=== PATIENT | female | born 1970 | race Caucasian/White ===

== ENCOUNTER 2017-01-27 17:44 | Emergency (ER) | payer BC, OTHER ==
[~2017-01-27] VITALS: Ht 152.4 cm; Wt 65.8 kg
[2017-01-27 20:40] LABS: PLATELET COUNT 293 x10^3mcL (130-400)
[2017-01-27 20:47] LABS: RED CELL DISTRIBUTION WIDTH 19.7 % (11.5-14.5)
[2017-01-27 20:54] LABS: BAND NEUTROPHIL 1 % (0-10); MONOCYTE 5 % (0-7); SEGMENTED NEUTROPHILS 55 % (37-75)
[2017-01-27 20:58] LABS: ovalocyte/elliptocyte 1+; rbc morphology (normal/abnorm) ABNORMAL (NORMAL)
[2017-01-27 21:45] VITALS: BP 122/76
== END 2017-01-27 21:30 | disposition home or self-care (01) ==
LOC: ED 17:44
PROVIDERS: Emergency Medicine
DX: R07.89 Other chest pain (principal); F32.9 Major depressive disorder, single episode, unspecified; F43.10 Post-traumatic stress disorder, unspecified; F41.9 Anxiety disorder, unspecified; F43.0 Acute stress reaction; Z79.899 Other long term (current) drug therapy
CPT/HCPCS: 36415